=== PATIENT | female | born 1950 | race Caucasian/White ===

== ENCOUNTER 2024-04-21 06:24 | Day surgery (SDC) | payer MEDICARE, OTHER ==
[~2024-04-21] VITALS: Ht 165.1 cm; Wt 86.3 kg
[2024-04-21] VITALS (15 sets, daily range): BP systolic 86–135; BP diastolic 44–90
[~2024-04-21 06:24] MED LIST: Acetaminophen 500 MG Tab PO SCH; CALCIUM W/D PO; CELECOXIB200 M1 PO; CeFAZolin Sodium 2,000 MG in NS 100 ML IV SCH; Chlorhexidine Mouth Care 15 ML UDC MT SCH; DAILY FIBER PO; HYDCHL25 PO; LISI20 PO; Lactated Ringer's 1,000 ML IV SCH; MAGNESIUM OXID500 MG PO; MULVITA PO; OxyCODONE HCL 10 MG TABCR PO SCH; PROM25 PO; Ropivacaine 0.5% HCl/Pf 123.125 MG,EPINEPHrine HCL 0.25 MG,Ketorolac Tromethamine 15 MG... INFIL SCH; TRAM50 PO; TRAZ50 PO; Tranexamic Acid 100 ML IV SCH
[2024-04-21] MEDS ORDERED: PSYLLIUM FIBER0.4 GM PO (06:41)
[2024-04-21] MEDS ORDERED: propofoL 100 ML IV ONE (07:16)
[2024-04-21] MEDS ORDERED: Bupivacaine 0.75%/Dext 8.25% 2 ML Amp IT ONE (07:16)
[2024-04-21] MEDS ORDERED: FentaNYL Citrate 50 MCG/ML 2 ML Injection ONE (07:18)
[2024-04-21] MEDS ORDERED: Midazolam HCl 1MG / ML 2ML Vial ONE (07:18)
[2024-04-21] MEDS ORDERED: Dexamethasone Sod Phos 10 MG/ML 1ML VIAL ONE (07:24)
[2024-04-21] MEDS ORDERED: Ondansetron HCl 2 MG / ML 2ML Vial ONE (07:24)
[2024-04-21] MEDS ORDERED: Lidocaine HCl 2% 20 ML MDV ONE (07:24)
[2024-04-21] MEDS ORDERED: Bupivacaine 0.5% Inj 10 ML Vial ONE (07:27)
[2024-04-21] MEDS ORDERED: Prochlorperazine Edisylate 10 mg Vial IV PRN (07:55)
[2024-04-21] MEDS ORDERED: OxyCODONE HCL 5 MG TAB PO PRN ×2 (07:55)
[2024-04-21] MEDS ORDERED: Magnesium Hydroxide Conc 10 ML UDC PO PRN (07:55)
[2024-04-21] MEDS ORDERED: Promethazine HCl 25 MG Tab PO PRN (07:55)
[2024-04-21] MEDS ORDERED: Bisacodyl 10 MG Supp PR PRN (07:55)
[2024-04-21] MEDS ORDERED: HYDROmorphone HCl/Pf 1MG SYR IV PRN (08:00)
[2024-04-21] MEDS ORDERED: Metoclopramide HCl 5MG / ML 2ML Vial IV PRN (08:00)
[2024-04-21] MEDS ORDERED: FLU VACC TS2024-25(6MOS UP)/PF 45 MCG/0.5 ML SYRINGE IM SCH (08:00)
[2024-04-21] MEDS ORDERED: DiphenhydrAMINE HCL 25 MG Cap PO PRN (08:00)
[2024-04-21] MEDS ORDERED: Ondansetron HCl 2 MG / ML 2ML Vial IV PRN (08:00)
[2024-04-21] MEDS ORDERED: Lactated Ringer's 1,000 ML IV SCH (08:05)
[2024-04-21] MEDS ORDERED: Phenylephrine HCl 100 MCG/ML-NS 10MLSYR (1MG/10ML) ONE (08:13)
[2024-04-21] MEDS ORDERED: Ketorolac Tromethamine 15mg Vial IV SCH (12:00)
[2024-04-21] MEDS ORDERED: CeFAZolin Sodium 2,000 MG in NS 100 ML IV SCH (15:45)
[2024-04-21] MEDS ORDERED: Acetaminophen 500 MG Tab PO SCH (16:00)
[2024-04-21] MEDS ORDERED: FAMO40 PO (19:10)
[2024-04-21] MEDS ORDERED: Famotidine 20 MG Tab PO PRN (19:15)
--- NOTE | 2024-04-21 19:16 | NUR ---
SHIFT SUMMARY PT WAS HOPEFUL TO GO HOME SAME DAY, BUT UNFORTUNATLY IS STILL HAVING NUMBNESS TO HER R FOOT & IS HAVING WHAT APPEARS TO BE DROP FOOT. DOES NOT HAVE A STABLE GAIT THEREFORE IS UNSAFE TO GO HOME. PAIN REASONABLY CONTROLLED. EATING, DRINKING, & VOIDING. PLEASANT & COOPERATIVE.
[2024-04-21] MEDS ORDERED: Docusate Sodium 100 MG Cap PO SCH (21:00)
[2024-04-21] MEDS ORDERED: TraZODone HCl 50 MG Tab PO SCH (21:00)
--- NOTE | 2024-04-22 04:51 | NUR ---
SHIFT SUMMARY ROXANN WAS ALERT AND FULLY ORIENTED ON ASSESMENT, AQUACEL TO R HIP IS C/D/I, PT REPORTS LINGERING NUMBNESS TO R FOOT THAT IS IMPROVING T/O NIGHT. ABLE TO WIGGLE TOES AND FEEL PRESSURE, PT WEAKNESS TO AFFECTED LEG MAKING AMBULATING DIFFICULT, 2 PERSON TRANSFER WITH FWW AND GB. PT PAIN MANAGED WELL AT THIS TIME, ABLE TO VOID SPONTANEOUSLY.
[2024-04-22 04:54] VITALS: BP 120/75
[2024-04-22 05:09] LABS: BASOPHILS ABSOLUTE AUTO 0.02 K/mm3 (0.00-0.23); BASOPHILS PERCENT AUTO 0 % (0-2); EOSINOPHILS ABSOLUTE AUTO 0.01 K/mm3 (0.00-0.68); EOSINOPHILS PERCENT AUTO 0 % (0-6); Hematocrit 32.1 % (33.0-51.0); Hemoglobin 11.2 g/dL (11.5-16.0); IMMATURE GRAN ABSOLUTE AUTO 0.11 K/mm3 (0.00-0.10); IMMATURE GRAN PERCENT AUTO 1 % (0-1); LYMPHOCYTES ABSOLUTE AUTO 1.78 K/mm3 (0.84-5.20); LYMPHOCYTES PERCENT AUTO 10 % (21-46); MONOCYTES ABSOLUTE AUTO 1.49 K/mm3 (0.16-1.47); MONOCYTES PERCENT AUTO 8 % (4-13); Mean Corpuscular HGB 31.2 pg (26.0-34.0); Mean Corpuscular HGB Conc 34.9 g/dL (31.5-36.5); Mean Corpuscular Volume 89 fL (80-100); Mean Platelet Volume 9.3 fL (9.1-12.4); NEUTROPHILS ABSOLUTE AUTO 14.67 K/mm3 (1.96-9.15); NEUTROPHILS PERCENT AUTO 81 % (41-73); Platelet Count 217 K/mm3 (150-400); RDW Standard Deviation 43.1 fL (35.1-46.3); Red Blood Cell Count 3.59 M/mm3 (3.80-5.20); White Blood Cell Count 18.08 K/mm3 (4.00-11.30)
[2024-04-22 05:37] LABS: Bun/Creatinine Ratio 29.8 (12.0-20.0); Calcium, Blood 8.5 mg/dL (8.5-10.1); Creatinine, Blood 1.04 mg/dL (0.40-1.00); Potassium, Blood 3.7 mmol/L (3.5-5.5)
[2024-04-22 08:10] VITALS: BP 120/73
[2024-04-22] MEDS ORDERED: Magnesium Oxide 400 MG Tab PO SCH (09:00)
[2024-04-22] MEDS ORDERED: Calcium Citrate 315 MG/Vitamin D 250 IU Tab PO SCH (09:00)
[2024-04-22] MEDS ORDERED: Multivitamins 1 Tab PO SCH (09:00)
[2024-04-22] MEDS ORDERED: Aspirin 81 MG Chew PO SCH (09:00)
[2024-04-22] MEDS ORDERED: HydroCHLOROthiazide 25 mg Tab PO SCH (09:00)
[2024-04-22] MEDS ORDERED: Lisinopril 20 MG Tab PO SCH (09:00)
[2024-04-22] MEDS ORDERED: CALCIUM 500 MG1 EAC9 PO (09:18)
[2024-04-22] MEDS ORDERED: ASPI81CH PO (09:19)
--- NOTE | 2024-04-22 11:40 | NUR ---
DISCHARGE NOTE: PT VERBALIZED UNDERSTANDING OF DISCHARGE TEACHING. VSS. EATING DRINKING AND VOIDING WITHOUT DIFFICULTY. PAIN MANAGED. INCISION SITE COVERED WITH AQUACEL, C/D/I. WHEELED OUT TO HUSBANDS CAR VIA WHEELCHAIR.
== END 2024-04-22 11:20 | disposition home or self-care (01) ==
LOC: ORSCMMR 06:24 → ORD 07:30 → ORSCMMR 07:30 → SURS 09:32 → ORSCMMR 04-22 11:20
PROVIDERS: Orthopaedic Surgery
PROC: 0SR90JZ Replacement of Right Hip Joint with Synthetic Substitute, Open Approach (ICD-10-PCS; principal; 2024-04-21 07:30)
DX: M16.11 Unilateral primary osteoarthritis, right hip (principal); Z96.651 Presence of right artificial knee joint; I10 Essential (primary) hypertension; Z79.899 Other long term (current) drug therapy
CPT/HCPCS: 36415; 72170; 80048; 85025; 97110; 97116; 97162; 97530; A9270; C1776; J0171; J0690; J0735; J1100; J1885; J2250; J2371; J2405; J2704; J2795; J3010; J7120